=== PATIENT | male | born 1980 | race Caucasian/White ===

== ENCOUNTER 2020-04-09 12:59 | Emergency (ER) | payer MEDICAID ==
[~2020-04-09] VITALS: Ht 177.8 cm; Wt 72.6 kg
[2020-04-09 13:06] VITALS: BP 140/86
[2020-04-09] MEDS ORDERED: Ziprasidone 20mg cap ORAL ONE (13:45)
[2020-04-09] MEDS ORDERED: LORazepam Inj 2mg/ml 1ml IV ONE (13:45)
[2020-04-09 13:51] LABS: BASOPHILS % (AUTO) 2.7 % (0.0-2.0); EOSINOPHILS % (AUTO) 2.1 % (0.0-3.0); HEMATOCRIT 41.2 % (42.0-52.0); HEMOGLOBIN 14.2 G/DL (14.2-18.0); LYMPHOCYTES % (AUTO) 18.7 % (20.0-45.0); MEAN CORPUSCULAR VOLUME 81 FL (80-99); MONOCYTES % (AUTO) 10.2 % (1.0-10.0); NEUTROPHILS % (AUTO) 66.4 % (45.0-75.0); PLATELET COUNT 172 K/UL (150-450); RED BLOOD COUNT 5.07 M/UL (4.70-6.10); RED CELL DISTRIBUTION WIDTH 12.5 % (11.6-14.8); WHITE BLOOD COUNT 7.7 K/UL (4.8-10.8)
--- NOTE | 2020-04-09 13:54 | Emergency Room Report ---
History of Present Illness General Chief Complaint: Behavioral Complaint Source: EMS Present Illness HPI 39-year-old male with a history of substance abuse and frequent ER visits for psychiatric disturbances was brought to the emergency department brought by ambulance and placed on 5150 hold by [employer]. Patient was found to be talking to himself, very agitated and walking in and out of traffic. Patient refused to answer questions with EMS and [employer] it was determined that he was a danger to himself and he was placed on a hold and brought to the ER for medical clearance and psychiatric evaluation. Patient denies any medical complaints at this time he states he is "very thirsty "he states he also needs to go to the bathroom and believes that he is dehydrated. Patient denies drug use. Patient reports "strange sensations on his skin ". He denies SI or HI. He denies pain, chest pain, shortness of breath or concerns of infection. Pt. denies heart or liver conditions. He denies PSA's. Allergies: Coded Allergies: UNABLE TO ASSESS (Unverified , 04/09/20) COVID-19 Screening Contact w/high risk pt: No Experienced COVID-19 symptoms?: No COVID-19 Testing performed HUM[employer]PARTMENT SUPERVISOR: No Patient History Past Medical History: see triage record Past Surgical History: none Pertinent Family History: none Reviewed Nursing Documentation: PMH: Agreed; PSxH: Agreed Nursing Documentation-PMH Past Medical History: No History, Except For Review of Systems All Other Systems: limited - poor pt. cooperation, tangential thought process, need for frequent re-directioning. Physical Exam Vital Signs Date Time Temp Pulse Resp B/P (MAP) Pulse Ox O2 Delivery O2 Flow Rate FiO2 04/09/20 13:00 98.8 140 18 149/80 (103) 98 Room Air Sp02 EP Interpretation: reviewed, normal General Appearance: no apparent distress, alert, GCS 15, non-toxic, other - Disheveled Head: normocephalic, atraumatic Eyes: bilateral eye normal inspection, bilateral eye PERRL, bilateral eye EOMI ENT: hearing grossly normal, normal voice Neck: full range of motion, no bony tend Respiratory: chest non-tender, lungs clear, normal breath sounds, no respiratory distress, no accessory muscle use, no wheezing, speaking full sentences Cardiovascular #1: regular rate, rhythm, normal capillary refill Gastrointestinal: normal bowel sounds, non tender, soft Rectal: deferred Musculoskeletal: back normal, normal range of motion, gait/station normal, non- tender Neurologic: alert, motor strength/tone normal, oriented x3, sensory intact, responsive, speech normal Psychiatric: no suicidal/homicidal ideation, anxious, other - Pt. is hyperactive, demonstrates involuntary muscle/extremity movements. Tangential thought process. On occasion appears to respond to internal stimuli. Skin: no rash, normal color, other - bilateral hands and feet are grossly contaminated Lymphatic: no adenopathy Medical Decision Making PA Attestation Dr. Garcia is my supervising Physician whom patient management has been discussed with. Diagnostic Impression: Primary Impression: Drug intoxication Qualified Codes: F19.920 - Other psychoactive substance use, unspecified with intoxication, uncomplicated Additional Impression: Behavioral disorder ER Course 39-year-old male with a history of substance abuse and frequent ER visits for psychiatric disturbances was brought to the emergency department brought by ambulance and placed on 5150 hold by [employer]. Patient was found to be talking to himself, very agitated and walking in and out of traffic. Patient refused to answer questions with EMS and [employer] it was determined that he was a danger to himself and he was placed on a hold and brought to the ER for medical clearance and psychiatric evaluation. Patient denies any medical complaints at this time he states he is "very thirsty "he states he also needs to go to the bathroom and believes that he is dehydrated. Patient denies drug use. Patient reports "strange sensations on his skin ". He denies SI or HI. He denies pain, chest pain, shortness of breath or concerns of infection. Pt. denies heart or liver conditions. He denies PSA's. Pt is hyperactive, and has a very anxious and restless affect. Ddx considered but are not limited to OD, SI/HI, psychosis, UTI, intoxication, drug induced psychosis. Vital signs: are WNL, pt. is afebrile H&PE are most consistent with behavioral/mental health issue most likely secondary to drug use. *Review of this patient's chart from previous ED visit show that patient previously was taking Geodon 20 mg daily, and frequently presents with toxicology screen showing positive for amphetamines. ORDERS: -CBC, CMP -CK:318 -UA: negative for infection see results attached. -UDS: Positive for Meth, Benzo's, and THC -Serum ETOH: WNL -Salicylates and Acetaminophen - no acute intoxication. -EK BPM NSR ED INTERVENTIONS: - Bed side sitter was ordered. - 2mg Ativan IV -20mg Geodon PO w. meal and milk DISPOSITION: Pt. is medically cleared and pending psychiatric evaluation. Psych EVAL: Performed by Dr. Rincon. Dr. Rincon lifted the 5150 hold as Pt. no longer exhibiting a danger to himself. He has been cooperative throughout ED visit, followed direction and did not require the use of physical restraints at anytime. Labs Test 04/09/20 13:30 04/09/20 17:22 White Blood Count 7.7 K/UL (4.8-10.8) Red Blood Count 5.07 M/UL (4.70-6.10) Hemoglobin 14.2 G/DL (14.2-18.0) Hematocrit 41.2 % (42.0-52.0) Mean Corpuscular Volume 81 FL (80-99) Mean Corpuscular Hemoglobin 28.1 PG (27.0-31.0) Mean Corpuscular Hemoglobin Concent 34.5 G/DL (32.0-36.0) Red Cell Distribution Width 12.5 % (11.6-14.8) Platelet Count 172 K/UL (150-450) Mean Platelet Volume 11.4 FL (6.5-10.1) Neutrophils (%) (Auto) 66.4 % (45.0-75.0) Lymphocytes (%) (Auto) 18.7 % (20.0-45.0) Monocytes (%) (Auto) 10.2 % (1.0-10.0) Eosinophils (%) (Auto) 2.1 % (0.0-3.0) Basophils (%) (Auto) 2.7 % (0.0-2.0) Sodium Level 144 MMOL/L (136-145) Potassium Level 3.7 MMOL/L (3.5-5.1) Chloride Level 108 MMOL/L (98-107) Carbon Dioxide Level 23 MMOL/L (21-32) Anion Gap 13 mmol/L (5-15) Blood Urea Nitrogen 20 mg/dL (7-18) Creatinine 1.2 MG/DL (0.55-1.30) Estimat Glomerular Filtration Rate > 60 mL/min (>60) Glucose Level 110 MG/DL (74-106) Calcium Level 9.1 MG/DL (8.5-10.1) Total Bilirubin 2.0 MG/DL (0.2-1.0) Direct Bilirubin 0.3 MG/DL (0.0-0.3) Aspartate Amino Transf (AST/SGOT) 28 U/L (15-37) Alanine Aminotransferase (ALT/SGPT) 24 U/L (12-78) Alkaline Phosphatase 74 U/L (46-116) Total Creatine Kinase 384 U/L (26-308) Total Protein 7.2 G/DL (6.4-8.2) Albumin 4.0 G/DL (3.4-5.0) Globulin 3.2 g/dL Albumin/Globulin Ratio 1.3 (1.0-2.7) Salicylates Level < 0.2 ug/mL (2.8-20) Acetaminophen Level < 2 MCG/ML (10-30) Serum Alcohol < 3 mg/dL Urine Opiates Screen Negative (NEGATIVE) Urine Barbiturates Screen Negative (NEGATIVE) Phencyclidine (PCP) Screen Negative (NEGATIVE) Urine Amphetamines Screen Positive (NEGATIVE) Urine Benzodiazepines Screen Positive (NEGATIVE) Urine Cocaine Screen Negative (NEGATIVE) Urine Marijuana (THC) Screen Positive (NEGATIVE) EKG Diagnostic Results Rate: normal - 79 Rhythm: NSR ST Segments: no acute changes ASA given to the pt in ED: No PA Scribe Text This Interpretation was scribed by SOPHIA Nguyen. Last Vital Signs Date Time Temp Pulse Resp B/P (MAP) Pulse Ox O2 Delivery O2 Flow Rate FiO2 04/09/20 13:42 132 19 140/86 98 04/09/20 13:06 Room Air 04/09/20 13:06 98.3 Status: improved - pt. calmer, no longer intermittently responding to internal stimuli. Pt. without pressured speech Disposition: HOME, SELF-CARE Condition: Stable Physician Consult: Dr. Rincon ( Psychology) Scripts Ziprasidone Hcl* (GEODON*) 20 Mg Capsule 20 MG ORAL DAILY, #30 CAP 0 Refills Prov: Elaine Nguyen 04/09/20 Referrals: Lisa Rincon MD [facility] Patient Instructions: Medical Screening Exam Additional Instructions: Discontinue Drug use. Take medications as directed. Follow up with a Mental Health Specialist/ Psychiatrist in 3 days, even if your symptoms have resolved. --Please review [facility] resource information provided The office information for Dr. Rincon the psychiatrist who evaluated you, is on the next page. Return sooner to ED if new symptoms occur, or current symptoms become worse. - Please note that this Emergency Department Report was dictated using [employer] tender technology software, occasionally this can lead to erroneous entry secondary to interpretation by the dictation equipment. Elaine Nguyen Apr 09, 2020 13:54
[2020-04-09 14:03] LABS: ANION GAP 13 mmol/L (5-15); BLOOD UREA NITROGEN 20 mg/dL (7-18); CALCIUM 9.1 MG/DL (8.5-10.1); CARBON DIOXIDE 23 MMOL/L (21-32); CHLORIDE 108 MMOL/L (98-107); CREATININE 1.2 MG/DL (0.55-1.30); POTASSIUM 3.7 MMOL/L (3.5-5.1); SODIUM 144 MMOL/L (136-145)
[2020-04-09 14:13] LABS: ALANINE AMINOTRANSFERASE 24 U/L (12-78); ALBUMIN/GLOBULIN RATIO 1.3 (1.0-2.7); ALKALINE PHOSPHATASE 74 U/L (46-116); ASPARTATE AMINO TRANSFERASE 28 U/L (15-37); CREATINE KINASE 384 U/L (26-308)
[2020-04-09 14:16] LABS: BILIRUBIN,DIRECT 0.3 MG/DL (0.0-0.3)
[2020-04-09 14:25] VITALS: BP 133/86
[2020-04-09 16:22] VITALS: BP 120/88
[2020-04-09 18:01] VITALS: BP 132/82
[2020-04-09 19:00] VITALS: BP 131/81
[2020-04-09] MEDS ORDERED: GEODON20 MG ORAL (19:39)
[2020-04-09 20:00] VITALS: BP 132/82
--- NOTE | 2020-04-09 21:30 | Consultation ---
DATE OF CONSULTATION: HISTORY OF PRESENT ILLNESS: This is a 39-year-old male with a history of methamphetamine as well as benzodiazepine and marijuana, who has been admitted to the hospital. The patient has been to our ER before on a different account number. The patient is a frequent flyer. He has multiple admissions. His system has been positive for meth. He has been coming to our ER since 2010 and his system has been positive for meth since 2010. The patient was placed on a 5150. The patient is denying any suicidal or homicidal ideation. He was twitching and suffering from EPS symptoms due to excessive use of meth amphetamine. PAST PSYCHIATRIC HISTORY: He denies. PAST MEDICAL HISTORY: Significant for abnormal laboratories due to malnutrition and substance use disorder. ALLERGIES: None. SUBSTANCE ABUSE HISTORY: Significant for methamphetamine, benzo, and weed. MENTAL STATUS EXAMINATION: The patient is alert and oriented times self, place, situation, and date. Mood is neutral. Affect is blunted. Congruent with mood. Thought process is concrete. Thought content, there is no suicidal or homicidal ideation. Cognition is impaired. Insight and judgment is impaired. ASSESSMENT: Harvard I Polysubstance dependence. Harvard II Deferred. Harvard III As above. Harvard IV Low. Harvard V 50. PLAN: 1. The patient is not an imminent danger to self or others. 2. Discontinue the hold. 3. Provide the patient with reality orientation and supportive therapy. Lisa Rincon M.D. DR: IVANNA JOB#: [id number] CC:
--- NOTE | 2020-04-13 17:11 | Cardiology Report ---
APPROVED REPORT EKG Measurement Heart [id number] <Conclusion> Normal sinus rhythm Normal ECG
== END 2020-04-09 20:00 | disposition home or self-care (01) ==
LOC: EDBD 12:59 → EMR 13:20
DX: F19.920 Other psychoactive substance use, unspecified with intoxication, uncomplicated (principal); F91.9 Conduct disorder, unspecified
CPT/HCPCS: 36415; 80053; 80307; 82248; 82550; 85025; 93005; 96361; 96374; G0480; G0481; J7030; U0002; Z7502; 99284